=== PATIENT | male | born 1985 | race Caucasian/White ===

== ENCOUNTER 2018-06-11 18:11 | Emergency (ER) | payer OTHER ==
[~2018-06-11] VITALS: Ht 180.3 cm; Wt 106.6 kg
[2018-06-11 18:22] VITALS: BP 115/54
--- NOTE | 2018-06-11 19:31 | NUR ---
32 Y/O M PRESENTED TO ED WITH C/O R FOOT PAIN. PER PT, "I STEPPED ON A NAIL THIS MORNING AROUND 1130. I STARTED TO GO TO AN URGENT CARE BUT DIDNT. WHEN I WALK IT HURTS." R KNOTTER TO TOUCH. FULL ROM. NO REDNESS OR EDEMA NOTED. ERMD NOTIFIED. WILL CONTINUE TO MONITOR.
--- NOTE | 2018-06-11 19:31 | NUR ---
PT TAKEN TO BED 1
[2018-06-11] MEDS ORDERED: KETOROLAC 60 MG/2 ML VIAL IM ONE (21:15)
== END 2018-06-11 21:30 | disposition home or self-care (01) ==
LOC: MED 18:11
DX: S91.331A Puncture wound without foreign body, right foot, initial encounter (principal); W45.0XXA Nail entering through skin, initial encounter; Y93.89 Activity, other specified; Y92.89 Other specified places as the place of occurrence of the external cause; Y99.8 Other external cause status
CPT/HCPCS: 90471; 90715; 96372; 99283; J1885